=== PATIENT | female | born 2000 | race Two or more races ===

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

== ENCOUNTER 2022-04-11 10:54 | Outpatient (REF) | payer OTHER, SELFPAY ==
[2022-04-11 13:57] LABS: Hematocrit 38.8 % (37.0-47.0); Hemoglobin 12.6 g/dl (12.0-16.0); Mean Corpuscular HGB Conc 32.5 g/dl (31.0-35.0); Mean Corpuscular Hemoglobin 27.6 pg (27.0-33.0); Mean Corpuscular Volume 85.1 fL (80.0-98.0); Mean Platelet Volume 11.8 fL (9.4-12.3); Platelet Count 306 X10*3/uL (160-400); Red Blood Count 4.56 X10*6/uL (4.20-5.50); Red Cell Distribution Width 14.1 % (11.0-16.0); White Blood Count 7.4 X10*3/uL (4.8-10.8)
[2022-04-11 15:46] LABS: Alanine Aminotransferase 9 U/L (0-31); Albumin Level 4.2 g/dL (3.5-5.0); Alkaline Phosphatase 57 U/L (39-117); Anion Gap 13 (12-20); Aspartate Amino Transferase 15 U/L (5-31); Bilirubin Total 0.2 mg/dL (0.0-1.0); Blood Urea Nitrogen 17 mg/dL (9-16); Calcium 9.7 mg/dL (8.4-10.2); Carbon Dioxide 24 mmol/L (22-29); Chloride 106 mmol/L (96-108); Cholesterol 205 mg/dL; Estimated Glomerular Filt Rate > 60; Glucose Fasting 85 mg/dL (60-99); HDL Cholesterol 63 mg/dL; LDL Cholesterol Calculated 131 mg/dl; Potassium 4.2 mmol/L (3.3-5.1); Sodium 139 mmol/L (135-145); Total Protein 7.1 g/dL (6.5-8.0); Triglycerides 57 mg/dL
[2022-04-11 15:59] LABS: TSH reflex Free T4 1.05 uIU/mL (0.32-4.0)
== END 2022-04-11 10:55 | disposition home or self-care (01) ==
LOC: HO.WFDLDS 10:54
PROVIDERS: Visit Provider Hospitalist
DX: Z00.00 Encounter for general adult medical examination without abnormal findings (principal)
CPT/HCPCS: 36415; 80053; 80061; 84443; 85027

== ENCOUNTER 2023-01-27 11:40 | Outpatient (AMB) | payer OTHER, SELFPAY ==
[2023-01-27 12:04] VITALS: BP 106/62; PULSE 122; TEMP 37.9; O2SAT 98
--- NOTE | 2023-01-27 12:04 | AM.OFFWIN_ITS ---
Intake Vital Signs 01/27/23 12:04 Height 5 ft 5 in BP 106/62 Blood Pressure Location Rt brachial Position Sitting Pulse 122 H Pulse Source Pulse Oximeter Temp 100.2 F Temp Source Oral Pulse Oximetry (%) 98 Oxygen Delivery Method Room Air Intake Visit Reasons: EP Fever, Sore throat, runny nose (masked) Intake Note: pt is here for c/o fever, sore throat, runny nose Patient Tobacco Use Status: Never used Tobacco Allergies No Known Allergies Allergy (Verified 01/27/23 12:05) Do you need a note to return to daycare/school/sports/work: Yes HPI HPI Comments History of Present Illness Details She presents to office with cold symptoms 6am onset Complains of fever, chills +body aches, fatigue +St, congestion No cough, SOB or CP No abdominal pain, vomiting, nausea or diarrhea No medicine for symptoms She took covid test which was negative 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 Father HTN (hypertension) Mother No problems noted. Social History Patient Tobacco Use Status: Never used Tobacco Review of Systems Const Reports body aches, Reports chills, Reports fatigue, Reports fever(s) and Reports malaise Eyes Denies blurry vision ENT Denies otalgia, Reports nasal discharge, Reports sore throat and Denies throat swelling Card Denies chest pain and Denies dyspnea Resp Reports cough and Denies dyspnea GI Denies abdominal pain, Denies constipation, Denies diarrhea, Denies nausea and Denies vomiting Musc Reports myalgias Endo Reports fatigue Aller/Immun Denies throat swelling Physical Exam Vital Signs: Last Vital Signs Temp 100.2 F 01/27/23 12:04 Pulse 122 H 01/27/23 12:04 BP 106/62 01/27/23 12:04 Pulse Ox 98 01/27/23 12:04 Oxygen Delivery Method Room Air 01/27/23 12:04 General: Non-toxic, NAD. Speaking full sentences. Skin: Warm dry throughout Eye: EOMI, PERRL HENT: Airway patent. Uvula midline. No pharyngeal erythema or edema. 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 Bilateral canals clear. TM non-erythematous, non-bulging. No TM perforation or hemotympanum noted. Respiratory: CTA bilaterally. No wheezes, rales or rhonchi Cardiac: tachycardia; auscultation approx 110. No murmur MSK: Full ROM extremities. Neurology: No aphasia or facial droop. Gait without abnormality Psych: Good mood and affect Assessment & Plan Assessment & Plan (1) Influenza-like illness: Code(s): J11.1 - Influenza due to unidentified influenza virus with other respiratory manifestations Plan Patient seen and evaluated. Can not go to work until afebrile x 24 hours COVID/rsv/flu swab obtained Isolate, hydrate, tylenol/motrin + contagious Patient gave verbal understanding and had no additional questions or concerns at time of discharge All questions answered Orders: Orders SARS-CoV2/FLU/RSV Today J11.1 - Influenza due to unidentified influenza virus with other respiratory manifestations Coding Level of Care Code Est Pt Level 3 (87051) Diagnoses Influenza-like illness J11.1
== END 2023-01-27 12:49 | disposition home or self-care (01) ==
PROVIDERS: PCP Hospitalist; Visit Provider Physician Assistant
DX: J11.1 Influenza due to unidentified influenza virus with other respiratory manifestations (principal)
CPT/HCPCS: 99051; 99213

== ENCOUNTER 2023-01-27 15:41 | Outpatient (REF) | payer OTHER, SELFPAY ==
[2023-01-27 16:27] LABS: Influenza A PCR NEGATIVE (Negative); Influenza B PCR NEGATIVE (Negative); Resp Syncy Virus RNA Qual PCR NEGATIVE (Negative); SARS COV2 PCR INHOUSE NEGATIVE (Negative)
== END 2023-01-27 15:42 | disposition home or self-care (01) ==
LOC: HO.LNP 15:41
PROVIDERS: Visit Provider Physician Assistant
DX: J11.1 Influenza due to unidentified influenza virus with other respiratory manifestations (principal); Z11.52 Encounter for screening for COVID-19
CPT/HCPCS: 0241U

== ENCOUNTER 2023-11-03 09:35 | Outpatient (AMB) | payer OTHER, SELFPAY ==
[2023-11-03 10:07] VITALS: BP 122/70; PULSE 96; TEMP 36.8; O2SAT 96; BMI 26.5
--- NOTE | 2023-11-03 10:07 | MHC.OFFWIV ---
Intake Vital Signs 11/03/23 10:07 Height 5 ft 5 in Weight 159 lb BMI 26.5 BP 122/70 Blood Pressure Location Lt brachial Position Sitting Pulse 96 Pulse Source Pulse Oximeter Temp 98.2 F Temp Source Oral Pulse Oximetry (%) 96 Oxygen Delivery Method Room Air Intake Visit Reasons: EP sore throat Intake Note: Pt is here today c/o scratchy throat due to ? has a piece of finger nail stuck in throat. Pt tested positive for Covid a week ago and it made her nerves which she bites her finger nails Patient Tobacco Use Status: Never used Tobacco Allergies No Known Allergies Allergy (Verified 11/03/23 10:07) HPI EP sore throat HPI Details Patient is a 23-year-old female who comes the walk-in clinic week after being diagnosed with COVID, complaining of new onset of scratchy throat. She has no trouble with swallowing or eating, no shortness of breath. She does have an occasional cough, nonproductive in nature. She denies fever chills or headache or dizziness currently. COUNT INCLUDES [facility] Surgical History No pertinent past surgical history Family History Father No problems noted. Father HTN (hypertension) Mother No problems noted. Social History Patient Tobacco Use Status: Never used Tobacco Physical Exam Vital Signs: Last Vital Signs Temp 98.2 F 11/03/23 10:07 Pulse 96 11/03/23 10:07 BP 122/70 11/03/23 10:07 Pulse Ox 96 11/03/23 10:07 Oxygen Delivery Method Room Air 11/03/23 10:07 BMI result Body Mass Index 26.5 Const General: cooperative, healthy appearing, comfortable, no acute distress, alert, awake, Physically active and well groomed; No anxious, diaphoretic, ill appearing, intoxicated appearing, poor hygiene or tired appearing Nutritional Appearance: average body habitus Orientation/consciousness: oriented to person Limitations: no limitations HEENT Head: Yes normal to inspection, Yes normocephalic and Yes atraumatic Ears: hearing grossly normal bilaterally, external ears normal, TM's normal bilaterally and EAC's normal General nose exam: Normal external nose present, Normal nares present, No nasal polyps present, Normal nasal mucous membranes and turbinates present, Normal septum present and No nasal discharge present Face and sinus: Yes normal facial exam, Yes sinuses nontender and Yes face symmetric Mouth: Normal oral and palatal mucosa present, lip normal and tongue normal Throat: Yes uvula midline, Yes abnormal tonsil (mildly erythematous bilaterally, and edematous bilaterally.), No peritonsillar mass, Yes posterior oropharynx abnormal, Yes postnasal drainage, No uvular edema and No cobblestoning Eyes General: appearance normal, both eyes and all related structures Neck Neck: Yes normal visual inspection, Yes full ROM, Yes trachea midline, Yes supple and No anterior neck swelling Lymphatic: lymphadenopathy (Mild bilateral submandibular lymphadenopathy) Chest Chest palpation & inspection: normal palpation of entire chest wall Resp Effort & Inspection: normal respiratory effort, able to speak in complete sentences, no audible wheezes, no grunting, not labored, no nasal flaring, no retractions and symmetric chest movement Auscultation: clear to auscultation bilaterally, no crackles, no rales, no rhonchi, no wheezes, lung sounds not diminished and No rub present Cardio Palpation: normal PMI Rate: regular rate Rhythm: regular rhythm Heart sounds: S1 normal heart sound present and S2 normal heart sound present Skin Other: Good color, warm and dry Neuro General: oriented to person Psych Appearance: grossly normal Mental Status: mental status grossly normal Speech and movement: Normal speech and movement present Affect: normal affect Attitude: cooperative Thought process: Normal thought process present Insight: Good insight present (Psych) Judgement: Good judgement present (Psych) Results AMB Rapid Strep AMB Rapid Strep Negative Last Edit by Michelle Sanchez CMA on 11/03/23 11:08 Assessment & Plan Assessment & Plan Orders: Orders AMB Rapid Strep Screen Today Z13.9 - Encounter for screening, unspecified Medications: New benzonatate 200 mg PO BID-TID PRN 30 caps 0RF cough Coding Level of Care Code Est Pt Level 4 (89553)
== END 2023-11-03 11:30 | disposition home or self-care (01) ==
PROVIDERS: PCP Hospitalist; Visit Provider Physician Assistant Medical
DX: Z13.9 Encounter for screening, unspecified (principal)

== ENCOUNTER → 2023-11-03 09:35 | Outpatient (BNVA) | payer OTHER, SELFPAY | PROVIDERS: PCP Hospitalist | DX: J02.9 Acute pharyngitis, unspecified (principal) | CPT/HCPCS: 87880 ==

== ENCOUNTER 2024-05-06 13:21 | Outpatient (AMB) | payer OTHER, SELFPAY ==
--- NOTE | 2024-05-06 13:30 | A.OFFPC_ITS ---
Vital Signs 05/06/24 13:32 Height 5 ft 5.35 in Weight 158 lb BMI 26.0 BP 112/62 Blood Pressure Location Rt brachial Position Sitting Pulse 78 Pulse Source Pulse Oximeter Temp 97.3 F Temp Source Temporal Artery Scan Pulse Oximetry (%) 94 Oxygen Delivery Method Room Air Intake Visit Reasons: New Patient Intake Note: Patient is a new patient here to establish care for Complaint of left shoulder pain. Transferring care from unknown. Medical records have not been requested and have not received. Blue Leather Sorter Required: No Scheme Technician: Not Required per policy Accompanied by: Self / Same As Patient Allergies No Known Allergies Allergy (Verified 05/06/24 13:44) Medication List - Last Reconciled 05/06/24 by Yu Parrish PA-C norelgestromin-ethin.estradiol 150-35 mcg/24 hr (Xulane) 1 patch topical QWEEK Tobacco use date assessed: 05/06/24 Dental Screening Dental Screen Date: 05/06/24 Did you have a dental visit in the last 12 months?: Yes Did you have a dental problem in the last 6 months where you did not have access to dental care?: No Was dental information given to patient?: Patient has dentist HPI New Patient HPI Details 24-year-old female coming to the office for the 1st time. The patient is a 24-year-old female presenting with shoulder pain. Reports initiated approximately two years ago. Describes persistent and dull pain that impedes sleep and functionality, with exacerbation upon arm elevation or pressure. No prior imaging studies or significant medical interventions have been pursued regarding this condition. The patient indicates an absence of medical evaluations over the preceding two years. [facility] Surgical History No pertinent past surgical history Family History Father No problems noted. Father HTN (hypertension) Mother No problems noted. 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 1. Little interest or pleasure in doing things: not at all 2. Feeling down, depressed, or hopeless: not at all 3. Trouble falling or staying asleep, or sleeping too much: not at all 4. Feeling tired or having little energy: not at all 5. Poor appetite or overeating: not at all 6. Feeling bad about yourself - or that you are a failure or have let yourself or your family down: not at all 7. Trouble concentrating on things, such as reading the newspaper or watching television: not at all 8. Moving or speaking so slowly that other people could have noticed. Or the opposite - being so fidgety or restless that you have been moving around a lot more than usual: not at all 9. Thoughts that you would be better off or of hurting yourself in some way: not at all Total score: 0 Depression Screening Interpretation: Negative Depression Screening Done: Yes Source: Developed by Drs. Parmjit Sims, Carol Roa, David Little and colleagues, with an educational marycarmen from [employer]. Thrive Questionnaire Date Thrive assessed: 05/06/24 I am a: Patient What is your living situation today?: I have a steady place to live Within the past 12 months, did the food you bought not last and you didn't have the money to get more?: Never true Within the past 12 months, did you worry whether your food would run out before you got money to buy more?: Never true Do you have trouble paying for medicines?: No Do you have trouble getting transportation to medical appointments?: No Do you have trouble paying your heating and electricity bill?: No Do you have trouble taking care of your child, family member or friend?: No Do you have trouble with day-to-day activities such as bathing, preparing meals, shopping, managing finances, etc.?: No Are you currently unemployed and looking for a job?: No Are you interested in more education?: Yes Please select the resources that you would like help with: None Currently or been in a relationship where the following occur: No concerns reported THRIVE Score: 0 AUDIT C Alcohol Use Questionnaire (AUDIT-C) 1. How often do you have a drink containing alcohol?: Never 3. How often do you have six or more drinks on one occasion?: Never Total Score: 0 DARLENE-7 AMB Questionnaire DARLENE-7 Date DARLENE - 7 assessed: 05/06/24 Feeling nervous, anxious, or on edge: 0 = Not at all Not being able to stop or control worryin = Not at all Worrying too much about different things: 0 = Not at all Trouble relaxin = Not at all Being so restless that it is hard to sit still: 0 = Not at all Becoming easily annoyed or irritable: 1 = Several days Feeling afraid as if something awful might happen: 0 = Not at all Total DARLENE-7 score (0-4 normal; 5-9 mild; 10-14 moderate; 15-21 severe): 1 Source: Developed by Drs. Parmjit Sims, Carol Roa, David Little and colleagues, with an educational marycarmen from [employer]. DARLENE-7 Assessment Billing DARLENE-7 Assessment Tool: DARLENE-7 Assessment 63788 Review of Systems Const Denies body aches, Denies chills and Denies fever(s) Eyes Reports no additional complaints ENT Reports no additional complaints Card Denies chest pain, Denies lightheadedness and Denies dyspnea Resp Denies dyspnea GI Denies abdominal pain, Denies nausea and Denies vomiting Reports no additional complaints Musc Reports no additional complaints and Denies abnormal gait Skin/Breast Reports system reviewed and no additional complaints, except as documented Neuro Denies abnormal gait Psych Reports no additional complaints Physical exam (Primary Care) Vital Signs: Last Vital Signs Temp 97.3 F 05/06/24 13:32 Pulse 78 05/06/24 13:32 BP 112/62 05/06/24 13:32 Pulse Ox 94 05/06/24 13:32 Oxygen Delivery Method Room Air 05/06/24 13:32 BMI result Body Mass Index 26.0 Tobacco/Smoking Status: Tobacco use Status Tobacco use date assessed 05/06/24 05/06/24 13:33 Patient Tobacco Use Status Never used Tobacco 05/06/24 13:33 e-Cigarette/Vaping Use Never Used 05/06/24 13:33 PHQ-9: PHQ-9 Score PHQ-9: Total score 0 05/06/24 13:33 Depression Screening Interpretation: Negative Thrive Assessment: Date of Thrive Assessment Date Thrive assessed 05/06/24 05/06/24 13:33 Currently or been in a relationship where the following occur: No concerns reported Const General: cooperative, healthy appearing, comfortable and no acute distress Orientation/consciousness: patient oriented x3 HENMT Head: Yes normocephalic Ears: hearing grossly normal bilaterally General nose exam: Normal external nose present Eyes General: appearance normal, both eyes and all related structures Conjunctivae: conjunctivae normal Neck Neck: Yes full ROM and Yes no lymphadenopathy Resp Effort & Inspection: normal respiratory effort Auscultation: clear to auscultation bilaterally, no crackles, no rales, no rhonchi and no wheezes Cardio Rate: regular rate Rhythm: regular rhythm Skin General skin exam: no rashes or lesions noted Neuro General: patient oriented x3 Gait exam (Neuro): Normal gait present Extrem Other: Tenderness to palpation over top of the left shoulder. Pain with internal rotation and extension. General: Yes normal to inspection, Yes full ROM and No edema Psych Affect: normal affect Attitude: cooperative Insight: Good insight present (Psych) Judgement: Good judgement present (Psych) Coding Level of Care Code New Pt Level 4 (16383) Diagnoses Left shoulder pain M25.512 Additional Codes DARLENE-7 Assessment Billing - DARLENE-7 Assessment Tool: DARLENE-7 Assessment 32932 ([id number]) Assessment & Plan Assessment & Plan (1) Left shoulder pain: Code(s): M25.512 - Pain in left shoulder Category: Medical Plan: At this time left shoulder pain appears to be muscular or tendon related. We will defer x-ray at this time and plan to refer to physical therapy. If s ymptoms worsen or persist x-ray may be obtained. Advised patient to use heat and ice as needed for pain and may use Tylenol and ibuprofen as well. Can consider referral to Orthopedics if symptoms do not improve with physical therapy. Plan A gynecological referral is issued for cervical screenings due per standard healthcare guidelines. This note was constructed using voice recognition software. While every effort has been made to ensure accuracy and compliance professional, still areas may have been included sometimes these areas may affect the content or meeting of the given symptoms. Total time spent caring for the patient today was 30 minutes. This includes time spent before the visit reviewing the chart, time spent during the visit, and time spent after the visit and documentation. Patient was informed and verbally consented to the use of an ambient scribe for clinic note documentation during this visit. Orders: Orders Comprehensive Met. Panel Today Z00.00 - Encounter for general adult medical examination without abnormal findings Complete Blood Count Auto Diff Today Z00.00 - Encounter for general adult medical examination without abnormal findings TSH reflex Free T4 Today Z00.00 - Encounter for general adult medical examination without abnormal findings Vitamin B12 and Folate Today Z00.00 - Encounter for general adult medical examination without abnormal findings Vitamin D 25-OH Total Today Z00.00 - Encounter for general adult medical examination without abnormal findings PT Evaluation and Treatment Today M25.512 - Pain in left shoulder Free T4 (Free Thyroxine) Today Z00.00 - Encounter for general adult medical examination without abnormal findings XR shoulder LT min 2V Today M25.512 - Pain in left shoulder Referrals [facility] Referral Z12.4 - Encounter for screening for malignant neoplasm of cervix
[2024-05-06 13:32] VITALS: BP 112/62; PULSE 78; TEMP 36.3; O2SAT 94; BMI 26.0
== END 2024-05-06 14:10 | disposition home or self-care (01) ==
LOC: HO.HMCH 13:22
PROVIDERS: PCP Hospitalist
DX: M25.512 Pain in left shoulder (principal)

== ENCOUNTER → 2024-05-06 13:21 | Outpatient (BNVA) | payer OTHER, SELFPAY | PROVIDERS: PCP Hospitalist | DX: M25.512 Pain in left shoulder (principal) | CPT/HCPCS: 96127 ==

== ENCOUNTER 2024-10-08 13:52 | Outpatient (AMB) | payer OTHER, SELFPAY ==
--- NOTE | 2024-10-08 13:57 | A.OFFPC_ITS ---
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 Accompanied by: boyfriend Allergies No Known Allergies Allergy (Verified 10/08/24 14:04) Medication List - Last Reconciled 10/08/24 by Yu Parrish PA-C norelgestromin-ethin.estradiol 150-35 mcg/24 hr (Xulane) 1 patch topical QWEEK Tobacco use date assessed: 10/08/24 Dental Screening Dental Screen Date: 10/08/24 Did you have a dental visit in the last 12 months?: No Did you have a dental problem in the last 6 months where you did not have access to dental care?: No Was dental information given to patient?: Patient has dentist HPI annual exam HPI Details 24-year-old female with no relevant past medical history coming in for annual exam. Presenting with an annual wellness examination. The patient experiences intermittent shoulder pain, particularly with extensive use. The pain is described as on and off, with no recent exacerbation noted. The patient reports nasal congestion and runny nose starting last night, with no fever or sore throat. Symptoms may be due to a cold or allergies, possibly related to ragweed season. Pap smear: program mgr appt 10/21/2024 Vaccinations: TdaP given in the office [facility] Surgical History No pertinent past surgical history Family History Father No problems noted. Father HTN (hypertension) Mother No problems noted. Social History Housing: Apartment Alcohol intake: never Patient Tobacco Use Status: Never used Tobacco e-Cigarette/Vaping Use: Never Used Second Hand Smoke Exposure: No service: No Current occupational status: employed Current occupation: [employer] Cognitive needs: No Hearing needs: No Vision needs: No Questionnaire PHQ-9 Over the last 2 weeks, how often have you been bothered by any of the following problems? 1. Little interest or pleasure in doing things: not at all 2. Feeling down, depressed, or hopeless: not at all 3. Trouble falling or staying asleep, or sleeping too much: not at all 4. Feeling tired or having little energy: not at all 5. Poor appetite or overeating: not at all 6. Feeling bad about yourself - or that you are a failure or have let yourself or your family down: not at all 7. Trouble concentrating on things, such as reading the newspaper or watching television: not at all 8. Moving or speaking so slowly that other people could have noticed. Or the opposite - being so fidgety or restless that you have been moving around a lot more than usual: not at all 9. Thoughts that you would be better off or of hurting yourself in some way: not at all Total score: 0 Depression Screening Interpretation: Negative Depression Screening Done: Yes Source: Developed by Drs. Parmjit Sims, Carol Roa, David Little and colleagues, with an educational marycarmen from [employer]. Thrive Questionnaire Date Thrive assessed: 05/06/24 I am a: Patient What is your living situation today?: I have a steady place to live Within the past 12 months, did the food you bought not last and you didn't have the money to get more?: Never true Within the past 12 months, did you worry whether your food would run out before you got money to buy more?: Never true Do you have trouble paying for medicines?: No Do you have trouble getting transportation to medical appointments?: No Do you have trouble paying your heating and electricity bill?: No Do you have trouble taking care of your child, family member or friend?: No Do you have trouble with day-to-day activities such as bathing, preparing meals, shopping, managing finances, etc.?: No Are you currently unemployed and looking for a job?: No Are you interested in more education?: Yes Please select the resources that you would like help with: None Currently or been in a relationship where the following occur: No concerns reported THRIVE Score: 0 AUDIT C Alcohol Use Questionnaire (AUDIT-C) 1. How often do you have a drink containing alcohol?: Never 3. How often do you have six or more drinks on one occasion?: Never Total Score: 0 DARLENE-7 AMB Questionnaire DARLENE-7 Date DARLENE - 7 assessed: 05/06/24 Feeling nervous, anxious, or on edge: 0 = Not at all Not being able to stop or control worryin = Not at all Worrying too much about different things: 0 = Not at all Trouble relaxin = Not at all Being so restless that it is hard to sit still: 0 = Not at all Becoming easily annoyed or irritable: 1 = Several days Feeling afraid as if something awful might happen: 0 = Not at all Total DARLENE-7 score (0-4 normal; 5-9 mild; 10-14 moderate; 15-21 severe): 1 Source: Developed by Drs. Parmjit Sims, Carol Roa, David Little and colleagues, with an educational marycarmen from [employer]. Review of Systems Const Denies body aches, Denies fatigue, Denies fever(s), Denies frequent falls, Denies headache(s) and Denies weakness Eyes Reports no additional complaints and Denies change in vision ENT Denies dysphagia, Denies dizziness, Denies facial pain, Denies headache(s), Reports nasal congestion, Reports nasal discharge and Denies odynophagia Card Denies chest pain, Denies syncope, Denies irregular heart rhythm, Denies leg edema, Denies lightheadedness and Denies dyspnea Resp Denies cough and Denies dyspnea GI Denies abdominal pain, Denies constipation, Denies dysphagia, Denies dyspepsia, Denies diarrhea, Denies nausea, Denies odynophagia and Denies vomiting Denies urinary frequency, Denies dysuria, Denies urinary hesitancy and Denies urinary urgency Musc Details: occasional left shoulder pain Denies back pain and Denies myalgias Skin/Breast Reports system reviewed and no additional complaints, except as documented Neuro Denies dizziness, Denies syncope, Denies frequent falls, Denies headache(s) and Denies weakness Psych Reports no additional complaints Endo Denies fatigue Physical exam (Primary Care) Vital Signs: Last Vital Signs Pulse 98 10/08/24 14:16 BP 122/84 10/08/24 13:58 Pulse Ox 97 10/08/24 13:58 Oxygen Delivery Method Room Air 10/08/24 13:58 BMI result Body Mass Index 26.7 Tobacco/Smoking Status: Tobacco use Status Tobacco use date assessed 10/08/24 10/08/24 14:04 Patient Tobacco Use Status Never used Tobacco 10/08/24 14:04 e-Cigarette/Vaping Use Never Used 10/08/24 14:04 PHQ-9: PHQ-9 Score PHQ-9: Total score 0 10/08/24 14:04 Depression Screening Interpretation: Negative Thrive Assessment: Date of Thrive Assessment Date Thrive assessed 05/06/24 10/08/24 14:04 Currently or been in a relationship where the following occur: No concerns reported Const General: cooperative, healthy appearing, comfortable and no acute distress Orientation/consciousness: patient oriented x3 HENMT Head: Yes normocephalic Ears: hearing grossly normal bilaterally, external ears normal, TM's normal bilaterally and EAC's normal General nose exam: Normal external nose present Face and sinus: Yes normal facial exam and Yes sinuses nontender Mouth: Normal oral and palatal mucosa present and tongue normal Throat: Yes posterior oropharynx normal Eyes General: appearance normal, both eyes and all related structures Conjunctivae: conjunctivae normal Pupils: Equal, round and reactive pupils present EOM: EOMs intact bilaterally and No Nystagmus present Neck Neck: Yes normal visual inspection, Yes full ROM and Yes no lymphadenopathy Chest Chest palpation & inspection: normal inspection of the chest Resp Effort & Inspection: normal respiratory effort Auscultation: clear to auscultation bilaterally, no crackles, no rales, no rhonchi, no wheezes and breath sounds present Cardio Rate: regular rate Rhythm: regular rhythm Peripheral pulses: radial pulses present and dorsalis pedis present GI Inspection: Yes normal to inspection and No Abdominal wall edema Palpation (GI): Soft to palpation, not firm and nontender Auscultation: normal bowel sounds Rectal Exam - Female: deferred General: Yes no CVA tenderness Back/Spine/Pelvis Back: no CVA tenderness Skin General skin exam: no rashes or lesions noted Neuro General: patient oriented x3 Cranial nerves: Yes Equal, round and reactive pupils present, Yes Midline tongue present, Yes Ability to bilaterally elevate shoulders present and No Nystagmus present Gait exam (Neuro): Normal gait present Extrem General: Yes normal to inspection, Yes full ROM, No no pedal edema and No edema Psych Speech and movement: Normal speech and movement present Affect: normal affect Insight: Good insight present (Psych) Judgement: Good judgement present (Psych) Immunizations Boostrix Tdap 2.5 Lf unit-8 mcg-5 Lf/0.5 mL intramuscular syringe Performing Provider: Yu Parrish PA-C [place] [facility] [place] [facility] Administered by: Nan Ledbetter RN on 10/08/24 14:29 Dose Route Admin Location Dispensed Lot Number Expiration Date [facility] [employer] 0.5 mL IM Left Deltoid 0.5 mL [id number] 11/28/26 [id number] [email or web address] Total Dispensed Waste 0.5 mL 0 % VIS Given Date VIS Provided VIS Publication Date 10/08/24 Single Vaccine 20 Eligibility Eligibility Date Funding Source Not [facility] Eligible 10/08/24 Private Coding Diagnoses Annual physical exam Z00.00 Cervical cancer screening Z12.4 Sinus congestion R09.81 Left shoulder pain M25.512 Assessment & Plan Assessment & Plan (1) Annual physical exam: Code(s): Z00.00 - Encounter for general adult medical examination without abnormal findings Category: Medical Plan: The patient is due for a tetanus vaccination, which is recommended to be administered today. Blood work is also due and can be completed at the patient's convenience within the next few weeks. COVID and flu vaccinations are recommended and will be available at the pharmacy. PLan to follow up yearly or sooner as needed. (2) Cervical cancer screening: Code(s): Z12.4 - Encounter for screening for malignant neoplasm of cervix Category: Medical Plan: She has an appointment with program mgr later this month. (3) Sinus congestion: Code(s): R09.81 - Nasal congestion Category: Medical Plan: The patient presents with nasal congestion and runny nose, suspected to be due to a cold or allergies. Saline nasal spray is recommended to alleviate symptoms, and the patient is advised to monitor symptoms and seek further evaluation if they worsen. (4) Left shoulder pain: Code(s): M25.512 - Pain in left shoulder Category: Medical Plan: Has been improving but is still interested in PT. Order updated today. Plan This note was constructed using voice recognition software. While every effort has been made to ensure accuracy and cork tipper, still areas may have been included sometimes these areas may affect the content or meeting of the given symptoms. Total time spent caring for the patient today was 30 minutes. This includes time spent before the visit reviewing the chart, time spent during the visit, and time spent after the visit and documentation. Patient was informed and verbally consented to the use of an ambient scribe for clinic note documentation during this visit. Orders: Orders TDaP Immunization Today Z23 - Encounter for immunization PT Evaluation and Treatment Today M25.512 - Pain in left shoulder
[2024-10-08 13:58] VITALS: BP 122/84; PULSE 104; O2SAT 97; BMI 26.7
[2024-10-08 14:16] VITALS: PULSE 98
--- OUTSIDE RECORDS SUMMARY | 2024-10-08 16:02 | XMS_ITS | Clinical Summary ---
Author Organization [facility] Address [address] [place] [phone] Phone Care Team Providers Care Manager Of Transportation Name Role Phone Pcp, Unknown Primary Care Provider Unavailabl e Social History Tobacco Use Types Packs/Day Years Used Date Smoking Tobacco: Never Assessed Education Answer Date Recorded Are you interested in more education? Not on wolfgang e 06/02/2022 Are you concerned about learning? Not on file 06/02/2022 No 06/02/2022 No 06/02/2022 Digital Access Answer Date Recorded No 07/04/2022 No 07/04/2022 Reliable internet access at home? Not on file 07/04/2022 Device with a working camera? Not on file Comments Unknown Sex and Gender Information Value Date Recorded Sex Assigned at Not on file Legal Sex Female 6:15 PM EDT Gender Identity Not on file Sexual Orientation Not on file Plan of Treatment Not on file Medical Devices Not on file Insurance [employer] GENERIC COMM[facility] * Guarantor: DARYNMOTHER Account Type Relation to Patient Date of Phone Billing Address Personal/[place] [address] [facility] GENER[facility] COMM[facility]CIAL [facility] [place] [employer] COMMERCIAL [facility] POS [facility] Address[facility] [phone] [place] [address] [place] GENERIC COMMERCIAL [facility] POS [facility] Address: [facility] [id number] [place] [address] [facility] [employer] [facility] [place] COMMERCIAL [facility] [place] [facility] COMM[facility]CIAL [facility] Care Teams Manager Of Transportation Relationship Specialty Start Date End Date Pcp, Unknown PCP - General 11/11/19 Additional Source Comments The information contained in this document represents components of the legal health record. It is not the complete legal health record[facility]
== END 2024-10-08 14:30 | disposition home or self-care (01) ==
LOC: HO.HMCH 13:53
DX: Z23 Encounter for immunization (principal)

== ENCOUNTER → 2024-10-08 13:52 | Outpatient (BNVA) | payer OTHER, SELFPAY | DX: Z00.00 Encounter for general adult medical examination without abnormal findings (principal); R09.81 Nasal congestion; M25.512 Pain in left shoulder; Z23 Encounter for immunization | CPT/HCPCS: 90471; 90715; 96127 ==